=== PATIENT | female | born 1995 | race American Indian/Alaskan Native ===

== ENCOUNTER 2021-10-20 07:20 | Emergency (ER) | payer SELFPAY ==
[2021-10-20 07:37] VITALS: BP 143/74
--- NOTE | 2021-10-20 08:32 | Emergency Department Report ---
Minor Respiratory - HPI Chief Complaint: Upper Respiratory Infection Stated Complaint: BODY IN PAIN/THROWING UP BLOOD/BODY OVERHEATING Time Seen by Provider: 10/20/21 08:08 Duration: 3 Days Severity: moderate Minor Respiratory: Yes Able to Tolerate Fluids, Yes Cough, No Rhinorrhea, No Sore Throat, No Ear Pain, No Sick Contacts, No Hemoptysis, No Chest Pain, No Shortness of Breath, No Fever Other History: 26-year-old -[place] female presents to the emergency room for 3-day history of body aches chills and cough. Patient is not vaccinated for Covid or the flu. She has not been tested for Covid. She denies any past medical history. She is taking ajju-nuq-zfmihnn cold medication. She denies any nausea vomiting chest pain shortness of breath. ED Review of Systems ROS: Stated complaint: BODY IN PAIN/THROWING UP BLOOD/BODY OVERHEATING Other details as noted in HPI Comment: All other systems reviewed and negative ED Past Medical Hx - Past Medical History Additional medical history: ANXIETY Minor Respiratory Exam - Exam General: Vital signs noted. No distress. Alert and acting appropriately. HEENT: Yes Moist Mucous Membranes, No Pharyngeal Erythema, No Pharyngeal Exudates, No Rhinorrhea, No Conjuctival Injection, No Frontal Tenderness, No Maxillary Tenderness Ear: Neither TM Bulge, Neither TM Erythema, Neither EAC Pain, Neither EAC Discharge Neck: Yes Supple, No Adenopathy Lungs: Yes Good Air Exchange, No Wheezes, No Ronchi, No Stridor, No Cough, No Labored Respirations, No Retractions, No Use of Accessory Muscles, No Other Abnormal Lung Sounds Heart: Yes Regular, No Murmur Abdomen: Yes Normal Bowel Sounds, No Tenderness, No Peritoneal Signs Skin: No Rash, No Edema Neurologic: Alert and oriented, no deficits. Musculoskeletal: Unremarkable. ED Course Vital Signs 10/20/21 07:30 Temperature 98.2 F Pulse Rate 74 Respiratory 20 Rate Blood Pressure 143/74 O2 Sat by Pulse 99 Oximetry ED Medical Decision Making - Medical Decision Making 26-year-old -[place] female presents to the emergency room for 3-day history of body aches chills and cough. Patient is not vaccinated for Covid or the flu. She has not been tested for Covid. She denies any past medical history. She is taking reto-loq-salkuaw cold medication. She denies any nausea vomiting chest pain shortness of breath. [place]an[place] with patient to get Covid tested. Take Tylenol ibuprofen for body aches be sure to increase her water intake. Rest. Critical care attestation.: If time is entered above; I have spent that time in minutes in the direct care of this critically ill patient, excluding procedure time. ED Disposition Clinical Impression: Viral syndrome Disposition: 01 HOME / SELF CARE / HOMELESS Is pt being admited?: No Does the pt Need Aspirin: No Condition: Stable Additional Instructions: Your symptoms appear most consistent with a nonspecific viral syndrome. However, given this current pandemic, COVID-19 is in the differential of possibilities. Despite your previous negative COVID-19 test, I do recommend repeat outpatient Covid 19 testing. In the meantime, isolate/quarantine yourself and stay away from anyone who is elderly, immunocompromised or chronically ill. You can use ibuprofen every 6-8 hours and Tylenol every 4-8 hours, using the dosing on the back of the bottle, as needed for any fever or body aches. Return to the emergency department with any worsening of your symptoms, development of chest pain or shortness of breath, or with any acute distress. Referrals: [facility] [Primary Care Provider] - 3-5 Days [facility] [Provider Group] - 3-5 Days Forms: Work/School Release Form(ED) Time of Disposition: 08:23
== END 2021-10-20 08:29 | disposition home or self-care (01) ==
LOC: ED 07:20
DX: B34.9 Viral infection, unspecified (principal); Z91.030 Bee allergy status; Z91.013 Allergy to seafood
CPT/HCPCS: 99282